=== PATIENT | female | born 1970 | race Caucasian/White ===

== ENCOUNTER 2016-08-24 12:31 | Emergency (ER) | payer OTHER ==
[~2016-08-24] VITALS: Ht 175.3 cm; Wt 97.7 kg
[~2016-08-24 12:31] MED LIST: ALBUTEROL SULF8.5 GM IH; AUGMENTIN875 MG PO; CELEXA10 MG PO; CELEXA20 MG PO; CHERATUSSIN AC473 ML PO; CITALOPRAM HBR20 MG PO; DECADRON2 MG PO; DECADRON4 MG PO; DOXYCYCLINE HY100 M3 PO; DULERA 100 MCG/13 GM IH; FLEXERIL10 MG PO; FLONASE16 G1 BOTH NARES; HYDROCHLOROTHIA25 MG PO; INDOCIN25 MG PO; LEVAQUIN750 MG PO; LIDODERM 5% P1 PATCH TD; NAPROSYN500 MG PO; NAPROXEN500 MG PO; NORCO 7.5/321 TABLET PO; PERCOCET 5/31 TABLET PO; PROAIR HFA8.5 GM IH; PROVENTIL,2.5 MG/3 M IH; ROBITUSSIN AC,T10 ML PO; SALINE MIST45 ML BOTH NARES; TESSALON200 MG PO; TRAMADOL HCL50 MG PO; ULTRAM50 MG PO; VALIUM5 MG PO; VENTOLIN HFA18 GM IH; ZITHROMAX Z-PA250 MG PO; ZITHROMAX250 MG PO; ZOFRAN4 MG PO; ZYRTEC10 M3 PO
[2016-08-24 13:22] LABS: EOSINOPHIL (%) 2.6 % (0-5); EOSINOPHIL COUNT 0.2 K/uL (0-0.3); HEMATOCRIT 46.9 % (36.0-46.0); IMMATURE GRANULOCYTE (%) 0.8 % (0.0-0.7); IMMATURE GRANULOCYTE COUNT 0.1 K/uL; INSTRUMENT ABS NEUTROPHIL CT 4.8 K/uL; LYMPHOCYTE COUNT 1.9 K/uL (1.0-2.8); MCH 30.6 PG (29.0-34.0); MCV 92.5 FL (83-99); MEAN PLAT.VOLUME 10.8 uM^3 (9.5-12.4); MONOCYTE (%) 5.8 % (3-12); MONOCYTE COUNT 0.4 K/uL (0-0.8); NEUTROPHIL (%) 65.1 % (45-76); NEUTROPHIL COUNT 4.8 K/uL (1.8-6.4); PLATELET COUNT 233 K/uL (156-360); RBC DIS.WIDTH-CV 14.1 % (11.8-14.6); RBC DIS.WIDTH-SD 48.4 % (39-53); RED BLOOD COUNT 5.07 M/uL (3.80-5.20); WHITE BLOOD COUNT 7.4 K/uL (4.1-10.2)
[2016-08-24 13:33] LABS: CHLORIDE 104 mEq/L (99-109); POTASSIUM 3.4 mEq/L (3.7-5.4); SODIUM 140 mEq/L (136-147)
[2016-08-24 13:34] LABS: GLUCOSE 103 mg/dL (70-99)
[2016-08-24 13:36] LABS: ANION GAP 11 MEQ/L (2-14)
[2016-08-24 13:38] LABS: GFR ESTIMATE (CALCULATED) > 59 mL/min/; SERUM ETHYL ALCOHOL < 10 mg/dL
[2016-08-24 13:39] LABS: UREA NITROGEN (BUN) 12 mg/dL (9-23)
[2016-08-24 13:48] LABS: QUANTITATIVE HCG < 4.0 MIU/ML
[2016-08-24] MEDS ORDERED: XANAX0.5 MG PO (15:08)
[2016-08-24 15:51] VITALS: BP 146/97
== END 2016-08-24 15:51 | disposition home or self-care (01) ==
LOC: EME 12:31
PROVIDERS: Emergency Medicine
DX: F43.23 Adjustment disorder with mixed anxiety and depressed mood (principal); F41.9 Anxiety disorder, unspecified; F32.9 Major depressive disorder, single episode, unspecified; J44.9 Chronic obstructive pulmonary disease, unspecified; I10 Essential (primary) hypertension; F17.200 Nicotine dependence, unspecified, uncomplicated
CPT/HCPCS: 80048; 81003; 84702; 85025; 90837; 99281; 99285; G0480

== ENCOUNTER → 2016-09-22 | Outpatient (CLI) | payer OTHER ==
[~2016-09-22] MED LIST changes: +XANAX0.5 MG PO
== END | disposition home or self-care (01) ==
LOC: RAD 15:56
DX: R91.8 Other nonspecific abnormal finding of lung field (principal); R50.9 Fever, unspecified; R06.2 Wheezing
CPT/HCPCS: 71020

== ENCOUNTER 2016-09-29 09:58 | Emergency (ER) | payer OTHER ==
[~2016-09-29] VITALS: Ht 175.3 cm; Wt 97.0 kg
[2016-09-29 10:58] LABS: HEMATOCRIT 44.9 % (36.0-46.0); MCH 30.9 PG (29.0-34.0); MCHC 33.9 G/DL (30.0-36.0); MCV 91.3 FL (83-99); MEAN PLAT.VOLUME 10.3 uM^3 (9.5-12.4); PLATELET COUNT 205 K/uL (156-360); RBC DIS.WIDTH-CV 13.2 % (11.8-14.6); RBC DIS.WIDTH-SD 44.8 % (39-53); RED BLOOD COUNT 4.92 M/uL (3.80-5.20); WHITE BLOOD COUNT 5.2 K/uL (4.1-10.2)
[2016-09-29 11:08] LABS: CHLORIDE 108 mEq/L (99-109); D-DIMER ELISA 0.29 mg/L FEU (< 0.57); POTASSIUM 3.7 mEq/L (3.7-5.4); SODIUM 141 mEq/L (136-147)
[2016-09-29 11:10] LABS: GLUCOSE 94 mg/dL (70-99)
[2016-09-29 11:11] LABS: ANION GAP 10 MEQ/L (2-14)
[2016-09-29 11:12] LABS: TOTAL BILIRUBIN 0.4 mg/dL (0.0-1.0)
[2016-09-29 11:14] LABS: ALKALINE PHOSPHATASE 89 IU/L (3-129); GFR ESTIMATE (CALCULATED) > 59 mL/min/
[2016-09-29 11:15] LABS: UREA NITROGEN (BUN) 13 mg/dL (9-23)
[2016-09-29] MEDS ORDERED: TESSALON200 MG PO (13:05)
[2016-09-29] MEDS ORDERED: CHERATUSSIN AC473 ML PO (13:07)
[2016-09-29 13:11] VITALS: BP 156/84
== END 2016-09-29 13:13 | disposition home or self-care (01) ==
LOC: EME 09:58 → EXP 09:58
PROVIDERS: Physician Assistant
DX: J06.9 Acute upper respiratory infection, unspecified (principal); I10 Essential (primary) hypertension; F17.200 Nicotine dependence, unspecified, uncomplicated; Z85.41 Personal history of malignant neoplasm of cervix uteri
CPT/HCPCS: 71020; 80053; 85027; 85379; 93005; 99281; 99284